=== PATIENT | female | born 1960 | race Caucasian/White ===

== ENCOUNTER 2018-06-24 10:26 | Emergency (ER) | payer OTHER ==
[2018-06-24] MEDS ORDERED: FLUORESCEIN SODIUM 1 STRIP STRIP ONE (11:08)
[2018-06-24] MEDS ORDERED: ERYTHROMYCIN BASE 0.5% OPHTH OINT 1 GM TUBE ONE (11:25)
== END 2018-06-24 11:40 | disposition home or self-care (01) ==
LOC: EDH 10:26
DX: S05.02XA Injury of conjunctiva and corneal abrasion without foreign body, left eye, initial encounter (principal); Z88.0 Allergy status to penicillin; X58.XXXA Exposure to other specified factors, initial encounter; Y93.89 Activity, other specified; Y92.89 Other specified places as the place of occurrence of the external cause; Y99.8 Other external cause status